=== PATIENT | female | born 1940 | race Caucasian/White ===

== ENCOUNTER 2016-04-07 07:23 | Outpatient (CLI) | payer MEDICARE, OTHER | END 2016-04-07 07:24 | disposition home or self-care (01) | DX: Z79.899 Other long term (current) drug therapy (principal); E78.5 Hyperlipidemia, unspecified; E55.9 Vitamin D deficiency, unspecified; E03.9 Hypothyroidism, unspecified ==

== ENCOUNTER 2016-05-22 11:41 | Outpatient (CLI) | payer MEDICARE, OTHER | END 2016-05-22 11:42 | disposition home or self-care (01) | DX: R63.4 Abnormal weight loss (principal) ==

== ENCOUNTER 2016-06-15 10:45 | Outpatient (CLI) | payer MEDICARE, OTHER | END 2016-06-15 10:46 | disposition home or self-care (01) | DX: F32.2 Major depressive disorder, single episode, severe without psychotic features (principal); R63.4 Abnormal weight loss ==

== ENCOUNTER 2016-06-21 10:26 | Emergency (ER) | payer MEDICARE, OTHER | END 2016-06-21 15:12 | disposition home or self-care (01) | DX: F41.9 Anxiety disorder, unspecified (principal); G47.00 Insomnia, unspecified; F32.9 Major depressive disorder, single episode, unspecified; J84.10 Pulmonary fibrosis, unspecified; I48.91 Unspecified atrial fibrillation; Z79.82 Long term (current) use of aspirin ==

== ENCOUNTER 2017-03-08 15:04 | Outpatient (CLI) | payer MEDICARE, OTHER ==
[2017-03-08 18:11] LABS: FOLATE 19.09 ng/mL (5.90 - >24.8)
== END 2017-03-08 15:05 | disposition home or self-care (01) ==
LOC: LAB.F 15:04
PROVIDERS: ATTEND Psychiatry & Neurology Neurology
DX: R41.9 Unspecified symptoms and signs involving cognitive functions and awareness (principal)
CPT/HCPCS: 36415; 82306; 82607; 82746

== ENCOUNTER 2017-06-07 12:47 | Outpatient (CLI) | payer MEDICARE, OTHER | END 2017-06-07 12:48 | disposition home or self-care (01) | LOC: RT 12:47 | PROVIDERS: ATTEND Internal Medicine Cardiovascular Disease | DX: I49.9 Cardiac arrhythmia, unspecified (principal) | CPT/HCPCS: 93005 ==

== ENCOUNTER 2018-07-04 16:03 | Outpatient (CLI) | payer MEDICARE, OTHER | END 2018-07-04 16:04 | disposition home or self-care (01) | LOC: RT 16:03 | PROVIDERS: ATTEND Internal Medicine Cardiovascular Disease | DX: I48.91 Unspecified atrial fibrillation (principal) | CPT/HCPCS: 93005 ==